=== PATIENT | female | born 1950 | race Caucasian/White ===

== ENCOUNTER → 2017-03-02 | Outpatient (CLI) | payer MEDICARE, OTHER ==
--- NOTE | 2017-03-05 13:18 | PCVCIMAG ---
APPROVED REPORT Study performed: 03/02/2017 12:53:45 EXAM: Comprehensive 2D, Doppler, and color-flow Echocardiogram Other Information Study Quality: Technically Difficult Technically limited study due to poor acoustic windows/small rib spaces. Indications Mitral Valve Disease Mitral Valve Prolapse Mitral stenosis, mitral regurgitation 2D Dimensions LVEF(%): 49.58 (>50%) IVSd: 6.90 (7-11mm) LVDd: 43.60 mm PWd: 6.78 (7-11mm) LVDs: 32.73 (25-40mm) Left Atrium: 33.57 (27-40mm) Aortic Root: 25.94 mm LV Single Plane 4CH: 63.02 % LV Single Plane 2CH: 64.25 %Leone's LVEF: 63.63 % Biplane EF: 66.4 % Volumes Left Atrial Volume (Systole) Single Plane 4CH: 33.84 mLSingle Plane 2CH: 34.18 mL Aortic Valve AoV Peak Diego.: 0.91 m/s AO Peak Gr.: 3.28 mmHgLVOT Max P.44 mmHg LVOT Max V: 0.60 m/s Mitral Valve MV Peak Gr.: 10.10 mmHg MV Mean Gr.: 2.81 mmHgE/A Ratio: 1.5 MV Decel. Time: 306.02 ms MV E Max Diego.: 1.37 m/s MV A Diego.: 0.92 m/s MV Max Diego.: 1.59 m/s MV Mean Diego.: 0.76 m/s MV VTI: 424.61 mm MV PHT: 123.29 ms MVA (PHT): 1.78 cm2 IVRT: 110.73 ms Pulmonary Valve PV Peak Diego.: 0.91 m/sPV Peak Gr.: 3.29 mmHg Pulmonary Vein P Vein S: 0.32 m/sP Vein A: 0.33 m/s P Vein D: 0.51 m/sP Vein A Dur.: 121.1 msec P Vein S/D Ratio: 0.63 Tricuspid Valve TR Peak Diego.: 2.31 m/s TR Peak Gr.: 21.36 mmHg Left Ventricle The left ventricle is normal size. There is normal LV segmental wall motion. There is normal left ventricular wall thickness. Left ventricular systolic function is normal. The left ventricular ejection fraction is within the normal range. LVEF is 60-65%. Grade II - pseudonormal filling dynamics. Right Ventricle The right ventricle is normal size. The right ventricular systolic function is normal. Atria The left atrium size is normal. The right atrium size is normal. Aortic Valve The aortic valve is normal in structure. No aortic regurgitation is present. There is no aortic valvular stenosis. Mitral Valve Mitral valve leaflets appear myxomatous. Mild to moderate mitral regurgitation. Mild mitral stenosis with a MVA of 1.8 cm2 and Mean gradient of 2.4 mmHg. A moderate mitral valve prolapse is present. The mitral valve leaflets are thickened and redundant without clear evidence of myxomatous degeneration. There is a moderate prolapse of the anterior mitral valve leaflet. Tricuspid Valve The tricuspid valve is normal in structure. Mild tricuspid regurgitation with a PAP of 28 mmHg. Pulmonic Valve The pulmonary valve is normal in structure. There is no pulmonic valvular regurgitation. Great Vessels The aortic root is normal in size. IVC is normal in size and collapses with >50% inspiration Pericardium There is no pericardial effusion. <Conclusion> The left ventricle is normal size. Left ventricular systolic function is normal. The left ventricular ejection fraction is within the normal range. LVEF is 60-65%. Grade II - pseudonormal filling dynamics. The left atrium size is normal. The aortic valve is normal in structure. Mild to moderate mitral regurgitation. There is no pericardial effusion.
== END | disposition home or self-care (01) ==
LOC: PCVCIMAG 12:37
PROVIDERS: ATTEND Internal Medicine Cardiovascular Disease
DX: I34.1 Nonrheumatic mitral (valve) prolapse (principal); I49.8 Other specified cardiac arrhythmias; E78.00 Pure hypercholesterolemia, unspecified; Z86.72 Personal history of thrombophlebitis
CPT/HCPCS: 93005; 93306; G0463

== ENCOUNTER → 2017-10-24 | Outpatient (CLI) | payer MEDICARE, OTHER ==
[~2017-10-24] MED LIST: REGADENOSON 0.4 MG/5 ML DISP.SYRIN. IV
== END | disposition home or self-care (01) ==
LOC: PCVCIMAG 07:55
DX: I34.0 Nonrheumatic mitral (valve) insufficiency (principal); I34.1 Nonrheumatic mitral (valve) prolapse; R06.00 Dyspnea, unspecified; E78.5 Hyperlipidemia, unspecified; Z87.891 Personal history of nicotine dependence
CPT/HCPCS: 78452; 93017; 93306; A9500; J2785

== ENCOUNTER → 2019-01-22 | Outpatient (CLI) | payer MEDICARE, OTHER ==
--- NOTE | 2019-01-22 16:16 | PCVCIMAG ---
APPROVED REPORT Study performed: 01/22/2019 14:07:21 EXAM: Comprehensive 2D, Doppler, and color-flow Echocardiogram Patient Location: Echo lab Room #: [id number]: routine BSA: 1.59 HR: 74 bpmBP: 104/62 mmHg Rhythm: NSR with frequent arrhythmia Other Information Study Quality: Technically Limited Risk Factors: Cardiac Risk Factors: HTN, Hyperlipidemia Indications Mitral Valve Disease Mitral Valve Prolapse Hypertension/HDD 2D Dimensions IVSd: 5.43 (7-11mm)LVOT Diam: 18.19 (18-24mm) LVDd: 43.68 mm PWd: 6.86 (7-11mm)Ascending Ao: 28.02 (22-36mm) LVDs: 32.99 (25-40mm) Left Atrium: 32.98 (27-40mm) Aortic Root: 19.72 mm Biplane EF: 55.0 % Aortic Valve AoV Peak Diego.: 1.15 m/s AO Peak Gr.: 5.32 mmHgLVOT Max P.59 mmHg LVOT Max V: 0.78 m/s QUAN Vmax: 1.75 cm2 Mitral Valve E/A Ratio: 1.1 MV Decel. Time: 236.58 ms MV E Max Diego.: 1.34 m/s MV A Diego.: 1.19 m/s Pulmonary Valve PV Peak Diego.: 0.90 m/sPV Peak Gr.: 3.22 mmHg Tricuspid Valve TR Peak Diego.: 2.61 m/s TR Peak Gr.: 27.22 mmHg TV Vmax: 0.68 m/sPA Pressure: 34.00 mmHg Left Ventricle The left ventricle is normal size. There is normal LV segmental wall motion. There is normal left ventricular wall thickness. Left ventricular systolic function is normal. The left ventricular ejection fraction is within the normal range. LVEF is 55-60%. The left ventricular diastolic function is normal. Right Ventricle The right ventricle is normal size. The right ventricular systolic function is normal. Atria Unable to measure due to limited angle of imaging The right atrium size is normal. Aortic Valve Aortic valve is trileaflet. Mild aortic valve sclerosis. No aortic regurgitation is present. There is no aortic valvular stenosis. 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 No evidence of mitral valve stenosis. Moderate bi-leaflet mitral valve prolapse. Tricuspid Valve The tricuspid valve is normal in structure. Mild tricuspid regurgitation with a PA pressure of 34 mmHg. Mild pulmonary hypertension. Pulmonic Valve The pulmonary valve is normal in structure. There is no pulmonic valvular regurgitation. Great Vessels The aortic root is normal in size. The ascending aorta is normal in size. Aortic arch is normal in caliber. IVC is normal in size and collapses >50% with inspiration. Pericardium There is no pericardial effusion. There is no pleural effusion. <Conclusion> The left ventricle is normal size. LVEF is 55-60%. The left ventricular diastolic function is normal. The right ventricle is normal size. Unable to measure due to limited angle of imaging Aortic valve is trileaflet. Mild aortic valve sclerosis. There is no aortic valvular stenosis. 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 Mild tricuspid regurgitation with a PA pressure of 34 mmHg. Mild pulmonary hypertension. The aortic root is normal in size. There is no pericardial effusion.
== END | disposition home or self-care (01) ==
LOC: PCVCIMAG 13:26
PROVIDERS: ATTEND Internal Medicine Cardiovascular Disease
DX: I08.3 Combined rheumatic disorders of mitral, aortic and tricuspid valves (principal); I27.20 Pulmonary hypertension, unspecified; I10 Essential (primary) hypertension; E78.5 Hyperlipidemia, unspecified; E78.00 Pure hypercholesterolemia, unspecified; R06.09 Other forms of dyspnea; Z86.718 Personal history of other venous thrombosis and embolism; Z87.891 Personal history of nicotine dependence
CPT/HCPCS: 93005; 93306; G0463